=== PATIENT | female | born 2005 | race Caucasian/White ===

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

== ENCOUNTER 2025-11-07 22:36 | Emergency (ER) | payer OTHER, SELFPAY ==
[2025-11-07 22:39] VITALS: BP 147/77
[2025-11-07 22:58] LABS: Hematocrit 39.9 % (37.0-47.0); Hemoglobin 13.6 g/dL (12.0-16.0); Mean Corp Hgb Conc. 34.1 g/dL (33.0-37.0); Mean Corpuscular Volume 86.0 fL (81.0-99.0); Nucleated Red Blood Cells % 0 %; Platelet Count 289 10^3/uL (130-400); Red Cell Dist. Width 13.3 % (11.5-14.5)
[2025-11-07 23:14] LABS: COVID-19 Antigen Negative (Negative)
[2025-11-07 23:51] LABS: Albumin 4.3 g/dl (3.5-5.0); Alkaline Phosphatase 88 U/L (38-126); Blood Urea Nitrogen 10 mg/dl (7-17); Calcium 9.7 mg/dl (8.4-10.2); Carbon Dioxide 21 mmol/L (22-30); Chloride 107 mmol/L (98-107); Glucose 114 mg/dl (70-99); Potassium 4.0 mmol/L (3.5-5.1); Sodium 135 mmol/L (135-145); Total Protein 7.3 g/dl (6.3-8.2); eGFR > 60.00
[2025-11-07 23:52] LABS: ALT (SGPT) 24 U/L (0-35); AST (SGOT) 23 U/L (14-36)
[2025-11-08 00:58] VITALS: BMI 38.2
[2025-11-08 02:00] VITALS: BP 121/71
[2025-11-08 03:00] VITALS: BP 103/52
--- NOTE | 2025-11-08 05:44 | ED.GENMED ---
History of Present Illness
<Bill Ram DO, Resident - Last Filed: 11/08/25 06:52>
General
Chief Complaint: Headache
Source: patient
Exam Limitations: none
Time Seen by Provider: 11/08/25 05:09
Nursing documentation reviewed up to this point in time: agreed with
History of Present Illness
History of Present Illness:
Lynn Giordano is a 19F w/ PMHx of recurrent migraines, asthma, IBS, SIBO, and PUD who is presenting with headache. Patient states that symptoms started approximately 36 hours ago with nose bleed. Endorses nose bleeds in the past, but this nose bleed
was worse than usual. Nose bleed was from R nare. Patient was unable to quantify but thinks she used up to 50 tissues. She also endorses passing a large clot. The bleeding subsided, but the next morning, patient started having a headache. Headache
is located in the occiput and the L frontal area. Headache is described as a constant pressure that has been getting worse. Patient states that when she moves her head it feels like the pain moves, describing this sensation as 'sloshy'. She has a
history of migraines, but endorses that this headache does not feel similar. Headache is worse with standing and walking around. No palliative factors. Patient has not tried taking OTC meds at home. She describes a long history of reaction to most
headache medications, including brand name medications prescribed by neurologists. Associated with this medication is nausea without vomiting. Patient also endorses a sensitivity to light, but not sound. She denies visual changes, ear pain,
tinnitus, numbness or tingling in the extremities, weakness in the extremities, slurred speech or facial droop. Patient originally denied recent upper respiratory illness or sick contacts at home, but then noted that she actually lives with roomates
who have had recent URIs and that she has also had recent bouts of upper respiratory infections, particularly with congestion.
Past History
<Bill Ram DO, Resident - Last Filed: 11/08/25 06:52>
Social History
Tobacco: Non-smoker
Review of Systems
<Bill Ram DO, Resident - Last Filed: 11/08/25 06:52>
Review of Systems
Allergies reviewed?: Yes
All Other Systems: ROS reviewed and negative except as documented in HPI and ROS
Phy Exam
<Bill Ram DO, Resident - Last Filed: 11/08/25 06:52>
Physical Exam
Physical Exam:
General: Well-developed, well-nourished female in no acute distress.
HEENT: normocephalic, atraumatic, sclera anicteric, EOMI, PERRLA; left frontal and maxillary tenderness to percussion. TMs without erythema or exudate.
Neck: Supple, normal ROM, no nuchal rigidity, Brudzinki's sign negative
CV: RRR, no m/r/g
Resp: CTAB, no wheezing, rales, rhonchi
Abdomen: Soft, nondistended
Neuro: EOMI, PERRLA, CN2-12 grossly intact, no facial droop, speech appropriate, normal and symmetric sensation, motor strength 5/5 in all 4 extremities, finger to nose testing normal, alternate rapid hand movements normal, no pronator drift
MSK: no clubbing, no cyanosis, no edema
Psych: calm, normal affect
Scores
<Bill Ram DO, Resident - Last Filed: 11/08/25 06:52>
Heart Failure Risk
Heart Failure Risk Score: Not Applicable
Heart Score for Chest Pain Patients
STEMI patient?: Not applicable
Withdrawal Assessment of Alcohol
Withdrawal Assessment Completed?: Not applicable
Course
<Bill Ram DO, Resident - Last Filed: 11/08/25 06:52>
Orders/Labs/Results
Orders:
Orders
11/07/25 22:48
COVID-19 Antigen Urgent
Source: Nasal Swab
Complete Blood Count/With Diff Urgent
Comprehensive Metabolic Panel Urgent
Influenza A+B Rapid Molecular Urgent
JOEL Source: Nasal Swab
Specimen Description:
11/08/25 00:32
ECG [Electrocardiogram (*1)] Urgent
Reason for Study: Bradycardia / Tachycardia
11/08/25 00:33
EKG- Treatment ONCE
11/08/25 05:45
CT Head W/o Iv Contrast Urgent
Comment:
Reason For Exam: Recurrent Headaches
Abnormal Lab Results
11/07/25
22:48
WBC 17.7 H 10^3/uL
(4.8-10.8)
Abs Immat Gran (auto) 0.1 H 10^3/uL
(0-0.05)
Absolute Neuts (auto) 12.1 H 10^3/uL
(1.4-6.5)
Absolute Lymphs (auto) 4.2 H 10^3/uL
(1.2-3.4)
Absolute Monos (auto) 0.9 H 10^3/uL
(0.1-0.6)
Carbon Dioxide 21 L mmol/L
(22-30)
Glucose 114 H mg/dl
(70-99)
11/07/25 22:48
11/07/25 22:48
Vital Signs
Initial and Last Documented VS:
Initial Vital Signs
Temp Pulse Resp BP Pulse Ox
98.5 F 97 20 147/77 98
11/07/25 22:39 11/07/25 22:39 11/07/25 22:39 11/07/25 22:39 11/07/25 22:39
Last Documented Vital Signs
Temp Pulse Resp BP Pulse Ox
98.5 F 64 17 103/52 97
11/07/25 22:39 11/08/25 06:00 11/08/25 06:00 11/08/25 03:00 11/08/25 05:45
<Lamont Watson, DO - Last Filed: 11/08/25 06:45>
Orders/Labs/Results
Orders:
Orders
11/07/25 22:48
COVID-19 Antigen Urgent
Source: Nasal Swab
Complete Blood Count/With Diff Urgent
Comprehensive Metabolic Panel Urgent
Influenza A+B Rapid Molecular Urgent
JOEL Source: Nasal Swab
Specimen Description:
11/08/25 00:32
ECG [Electrocardiogram (*1)] Urgent
Reason for Study: Bradycardia / Tachycardia
11/08/25 00:33
EKG- Treatment ONCE
11/08/25 05:45
CT Head W/o Iv Contrast Urgent
Comment:
Reason For Exam: Recurrent Headaches
Abnormal Lab Results
11/07/25
22:48
WBC 17.7 H 10^3/uL
(4.8-10.8)
Abs Immat Gran (auto) 0.1 H 10^3/uL
(0-0.05)
Absolute Neuts (auto) 12.1 H 10^3/uL
(1.4-6.5)
Absolute Lymphs (auto) 4.2 H 10^3/uL
(1.2-3.4)
Absolute Monos (auto) 0.9 H 10^3/uL
(0.1-0.6)
Carbon Dioxide 21 L mmol/L
(22-30)
Glucose 114 H mg/dl
(70-99)
11/07/25 22:48
11/07/25 22:48
Vital Signs
Initial and Last Documented VS:
Initial Vital Signs
Temp Pulse Resp BP Pulse Ox
98.5 F 97 20 147/77 98
11/07/25 22:39 11/07/25 22:39 11/07/25 22:39 11/07/25 22:39 11/07/25 22:39
Last Documented Vital Signs
Temp Pulse Resp BP Pulse Ox
98.5 F 64 17 103/52 97
11/07/25 22:39 11/08/25 06:00 11/08/25 06:00 11/08/25 03:00 11/08/25 05:45
<Bill Ram DO, Resident - Last Filed: 11/08/25 06:52>
MDM/Problems Addressed
Differential Diagnosis Includes:
Migraine Headache, Acute Sinusitis, Tension Headache, Cluster Headache
MDM/Problems Addressed:
19F w/ PMHx of migraines who is presenting with headache that is not similar to migraines in the past. Pressure like, constant. Worse with standing and walking. Associated with nausea and sensitivity to light. Neuro exam is largely unremarkbale.
Given the patient's extensive history, sensitivity to light, and history of TBI, ordered CT Head w/o. CT negative for any acute intracranial abnormality. Suspect this is due to acute sinusitis given history of URI, sinus tenderness and WBC count.
Patient declines medication for headache or sinus pain. Counseled on Flonase and saline nasal spray. Antibiotics are not indicated at this time, but patient counseled to see PCP if sx persist or if she experiences double worsening. Patient should
continue to see her neurologist for additional recommendations with regard to migraine control.
<Bill Ram DO, Resident - Last Filed: 11/08/25 06:52>
*Pulse Oximetry
SaO2: 97
Oxygen Mode of Delivery: Room air
Patient hypoxic: no
*Critical Care Note
Total Time (30-74mins, 75-104mins- exclusive of procedures): Not Applicable
ED Attending Note
<Bill Ram DO, Resident - Last Filed: 11/08/25 06:52>
-
Portions of this chart may have been created with voice recognition software.� Occasional wrong word or��sound alike� substitutions may have occurred due to the inherent limitations of voice recognition software.
<Lamont Watson DO - Last Filed: 11/08/25 06:45>
ED Attending Note
Patient seen and examined by attending physician: Yes
I performed a history and physical exam of patient and discussed management with resident, I reviewed resident's note and agree with documented findings and plan of care.: Yes
ED Attending Note:
I have reviewed and agree with history and treatment plan by Bill Ram DO. My exam revealed
Physical Exam
General: no apparent distress, not acutely ill
Neck: supple. no meningeal signs. normal posterior pharynx
Heart: s1/s2 regular rate and rhythm, no murmur. equal radial
pulses.
HEENT: Pupils equal round reactive to light, EOMI, mild left maxillary tenderness
Lungs: no acute respiratory distress. clear bilaterally
Abdomen: normal bowel sounds. not tender. no CVAT
Neuro: alert and oriented. no focal neurological deficits cranial nerves II through XII intact
Skin: no rash
Psychiatric: well kept. interactive and cooperative
Extremities: no edema. no calf tenderness. negative homans. good distal pulses
19-year-old female with headache, likely migraine versus early sinusitis. No indication for antibiotics at this time. CT head normal. Mild leukocytosis, unclear etiology. No meningismus. Stable for discharge. Return precautions given.
Discharge Plan
Departure
Patient Disposition: Home (Routine Discharge)
Date of Disposition: 11/08/25
Time of Disposition: 06:42
Patient with high blood pressure during this ER visit?: No
Condition: Good
Discharge Problem:
Acute sinusitis
Instructions: Migraines (DC), Headache, Adult (DC)
Prescriptions:
No Action
cetirizine [Zyrtec] 10 mg Tablet
10 mg PO DAILY PRN (Reason: congestion)
Referrals:
Charly Coto CRNP [Family Provider]
Activity Restrictions/Additional Instructions:
You may follow up with your neurologist for continuation of routine care.
Your headache may likely be from acute sinusitis. You may use Flonase or saline nasal spray for symptom relief.
You indicated that you use indomethacin for your headaches, you may continue to use this medication for headache relief.
An antibiotic is not indicated at this time, but follow up with your primary care provider if symptoms last greater than 10 days, or if your symptoms subside and then return again.
Seek medical care if your headaches worsen, you develop nausea/vomiting, you develop fevers, or if you are unable to tolerate light.
Continue to stay hydrated.
Interventions
Interventions:
*General Assessment Last Done: 11/07/25 22:39
*Neglect/Abuse Screening Last Done: 11/07/25 22:39
*ED COVID-19 Vaccine History Last Done: 11/08/25 01:02
*ED Influenza Vaccine History Last Done: 11/08/25 01:02
[facility] Fall Risk Assessment Tool Last Done: 11/08/25 01:02
*Risk Screen - Suicide (C-SSRS) Last Done: 11/07/25 22:39
ED- Neurological Assessment Last Done: 11/08/25 01:13
Discharge Date and Time
Print Language: DIVEHI
== END 2025-11-08 07:25 | disposition home or self-care (01) ==
LOC: EMR 22:36
PROVIDERS: Emergency Medicine; EMERGENCY PHYSICIAN Emergency Medicine
DX: J01.90 Acute sinusitis, unspecified (principal); G43.909 Migraine, unspecified, not intractable, without status migrainosus; J45.909 Unspecified asthma, uncomplicated; K58.9 Irritable bowel syndrome, unspecified; Z87.820 Personal history of traumatic brain injury
CPT/HCPCS: 99284; 70450; 80053; 85025; 87502; 87811; 93005